=== PATIENT | male | born 1990 | race Caucasian/White ===

== ENCOUNTER 2017-12-23 06:35 | Emergency (ER) | payer OTHER, BC ==
--- NOTE | 2017-12-23 07:19 | EDM.PDOC ---
ED HPI GENERAL MEDICAL PROBLEM - General Chief Complaint: General Stated Complaint: head trauma Time Seen by Provider: 12/23/17 07:10 Source of Information: Reports: Patient History Limitations: Reports: No Limitations - History of Present Illness INITIAL COMMENTS - FREE TEXT/NARRATIVE: Patient presents today with a closed head injury. Was working on the top of a rail car, prying on the cover to get the car open as it was all iced up. Was using a creek bar to pry it open and it slipped and came back and hit him in the head. Did drop to his knees but no loss of consciousness. States hard to focus now this am as keeping his eyes open causes more pain. [place] nauseated in ER initially but better now. He denies any gait disturbance. No neck pain. No numbness, tingling or weakness in his arms or legs. Onset: Today, Sudden Duration: Minutes: Location: Reports: Head Quality: Reports: Throbbing Severity: Moderate Improves with: Reports: None Associated Symptoms: Reports: Nausea/Vomiting. Denies: Confusion, Chest Pain, Cough, Fever/Chills, Loss of Appetite, Malaise, Shortness of Breath, Weakness Headache Pain Score (Numeric/FACES): 4 - Related Data Allergies Allergy/AdvReac Type Severity Reaction Status Date / Time No Known Allergies Allergy Verified 12/23/17 06:43 Home Meds: Home Meds . [No Known Home Meds] 12/23/17 [History] Past Medical History Gastrointestinal History: Reports: Other (See Below) Other Gastrointestinal History: GASTRIC BAND Neurological History: Reports: Concussion Social & Family History - Family History Family Medical History: Noncontributory - Tobacco Use Smoking Status *Q: Never Smoker ED ROS GENERAL - Review of Systems Review Of Systems: See Below Constitutional: Denies: Weakness, Diaphoresis HEENT: Reports: Eye Pain, Glasses, Vision Change (hard to focus). Denies: Ear Discharge, Ear Pain, Eye Discharge, Nosebleed, Rhinitis, Sinus Problem, Throat Pain Respiratory: Denies: Shortness of Breath, Cough Cardiovascular: Denies: Chest Pain Endocrine: Reports: No Symptoms GI/Abdominal: Reports: Nausea. Denies: Abdominal Pain, Vomiting : Reports: No Symptoms Musculoskeletal: Denies: Neck Pain Skin: Reports: Bruising, Erythema Neurological: Reports: Headache. Denies: Dizziness, Syncope ED EXAM, GENERAL - Physical Exam Exam: See Below Exam Limited By: No Limitations General Appearance: Alert, WD/WN, Mild Distress Eye Exam: Bilateral Eye: EOMI, PERRL Ears: Normal External Exam, Normal TMs Nose: Normal Inspection, Normal Mucosa, No Blood Throat/Mouth: Normal Inspection, Normal Oropharynx Head: Normocephalic Neck: Normal Inspection, Supple, Non-Tender Respiratory/Chest: No Respiratory Distress, Lungs Clear, Normal Breath Sounds Cardiovascular: Regular Rate, Rhythm GI/Abdominal: Normal Bowel Sounds, Soft, Non-Tender Extremities: Normal Inspection, Normal Capillary Refill Neurological: Alert, Oriented, CN II-XII Intact, Normal Cognition, Normal Gait, Normal Reflexes, No Motor/Sensory Deficits Skin Exam: Warm, Erythema (Patient has a 3 cm circular erythematous abrasion/ contusion to the right forehead. Tender. ) Course - Vital Signs Last Recorded V/S: Last Vital Signs Temp 98.2 F 12/23/17 06:46 Pulse 83 12/23/17 06:46 Resp 18 12/23/17 06:46 BP 132/69 12/23/17 06:46 Pulse Ox 96 12/23/17 06:46 - Orders/Labs/Meds Orders: Active Orders 24 hr Category Date Time Status Head wo Cont [CT] Stat Exams 12/23/17 06:44 Ordered Meds: Medications Discontinued Medications Generic Name Dose Route Start Last Admin Trade Name Marcin PRN Reason Stop Dose Admin Hydrocodone Bitart/Acetaminophen 1 tab 12/23/17 07:21 12/23/17 07:25 Ballinger 325-5 Mg PO 12/23/17 07:22 1 tab ONETIME ONE Administration - Re-Assessments/Exams Free Text/Narrative Re-Assessment/Exam: 12/23/17 07:33 CT scan of his head negative per radiology Departure - Departure Time of Disposition: 07:33 Disposition: Home, Self-Care 01 Condition: Good Clinical Impression: Closed head injury Qualifiers: Encounter type: initial encounter Qualified Code(s): S09.90XA - Unspecified injury of head, initial encounter - Discharge Information *PRESCRIPTION DRUG MONITORING PROGRAM REVIEWED*: No *COPY OF PRESCRIPTION DRUG MONITORING REPORT IN PATIENT MURIEL: No Referrals: Provider,Unknown [Primary Care Provider] - Forms: ED Department Discharge Additional Instructions: 1. Rest today 2. Alternate tylenol with ibuprofen for headache/discomfort 3. Head injury instructions 4. Return if any change in mental status, vision changes, worsening headache, etc. - My Orders Last 24 Hours: My Active Orders 12/23/17 06:44 Head wo Cont [CT] Stat - Assessment/Plan Last 24 Hours: My Active Orders 12/23/17 06:44 Head wo Cont [CT] Stat
[2017-12-23] MEDS ORDERED: Acetaminophen/HYDROcodone 325-5 MG Tab PO ONE (07:21)
== END 2017-12-23 07:44 | disposition home or self-care (01) ==
LOC: CC.ED 06:35
DX: S09.90XA Unspecified injury of head, initial encounter (principal); S00.83XA Contusion of other part of head, initial encounter; W22.8XXA Striking against or struck by other objects, initial encounter
CPT/HCPCS: 70450; 99283; A9270